=== PATIENT | female | born 1990 | race Caucasian/White ===

== ENCOUNTER 2020-10-11 08:15 | Outpatient (RCR) | payer OTHER, SELFPAY ==
--- NOTE | 2020-08-25 10:44 | PTOPEVAL ---
PHYSICAL THERAPY EVALUATION AND PLAN OF CARE Thank you for referring Fatmata Gomez to [facility].? The patient is scheduled to be seen for therapy? 1x/week for 4 weeks. Please review, sign, date and return this plan of care BRY. I agree with and certify that the following plan of care is medically necessary. Referring Physician Date Attending Provider: Tiffany Jovel, BENCH ASSEMBLER Evaluation Diagnosis lower back pain with left radicular symptoms Onset 1month Subjective Information Here today with c/o lower back Query Text:As Reported By Patient/ pain with left radicular Family symptoms that will go down to the ankle. This has been happening about a month. Sometimes pain is just in lower back. When symptoms go down the left leg, it will prevent bending over or standing up tall and can last 10-20minutes. Describes the pain that goes down the leg as Just hurts. Describes a tingling just in the foot, but not the whole leg. Self Report Pain Assessment Left Spine, Lumbar Reported Pain Level 4 Pain Description Aching Pain Frequency Acute,Continuous Lowest Pain Intensity 2 Greatest Pain Intensity 9 Pain Score Pain Score 4: Self Report Interventions Used Interventions Used By Clinicians Exercise,Joint Mobilization, Manual Therapy Techniques Pain Relief Interventions Used By None Patient Cervical and Lumbar ROM Lumbar ROM Lumbar Flexion (0-90) 60 Query Text:Active in Degrees Lumbar Flexion Active Ankle Query Text:Hands to: Lumbar Extension (0-40) 14 Query Text:Active in Degrees Lateral Rotation Right (0-45) 30 Query Text:Active in Degrees Lateral Rotation Left (0-45) 20 Query Text:Active in Degrees Lumbar Comments after treatment: extension = 22deg, left rotation = 26deg Lower Extremity Muscle Strength Testing Hip Strength Right Hip Flexion Strength 5 Normal Hip Extension Strength 4- Good - Hip Abduction Strength 4+ Good + Hip Strength Comments pain in left lower back with hip flexion, hip abduction, and extension testing Left Hip Flexion Strength 4+ Good + Hip Extension Strength 3- Fair -
--- NOTE | 2020-09-15 09:06 | PTOPEVAL ---
PHYSICAL THERAPY PROGRESS REPORT AND POC UPDATE Thank you for referring Fatmata Gomez to [facility].? The patient is scheduled to be seen for therapy? 1x/every other week for 4 weeks. Please review, sign, date and return this plan of care BRY. I agree with and certify that the following plan of care is medically necessary. Referring Physician Date Attending Provider: Tiffany Jovel, PLUG SORTER Progress Diagnosis lower back pain with left radicular symptoms Onset 1month Subjective Information Reports that she has been Query Text:As Reported By Patient/ gradually improving week by Family week. Over the last week she had no symptoms except for yesterday evening. She did her exercises and she felt better . Pain Assessment Timing of Pain Assessment Timing of Pain Assessment Pre-Treatment Self Report Self Report Pain Level 0 Pain Score Pain Score 0: Self Report Interventions Used Interventions Used By Clinicians Exercise,Joint Mobilization, Manual Therapy Techniques Pain Relief Interventions Used By None Patient Cervical and Lumbar ROM Lumbar ROM Lumbar Flexion (0-90) 60 Query Text:Active in Degrees Lumbar Flexion Active Ankle Query Text:Hands to: Lumbar Extension (0-40) 20 Query Text:Active in Degrees Lateral Rotation Right (0-45) 30 Query Text:Active in Degrees Lateral Rotation Left (0-45) 30 Query Text:Active in Degrees Lumbar Comments . Cervical and Lumbar Muscle Testing Lumbar Strength Upper Abdominal Strength 4-Good- Lower Abdominal Strength 3+Fair+ Lower Extremity Muscle Strength Testing Hip Strength Right Hip Flexion Strength 5 Normal Hip Extension Strength 4 Good Hip Abduction Strength 4+ Good + Hip Strength Comments . Left Hip Flexion Strength 5 Normal Hip Extension Strength 4- Good - Hip Abduction Strength 4+ Good + Muscle Length Testing Muscle Length Testing Piriformis w/Hip Flexion >90 Degrees (R) Mild Tightness,(L) Mild Tightness Left Hamstring Length -40 Query Text:(90 - 90 Position) Right Hamstring Length -40 Query Text:(90 - 90 Position) Posture Posture Supine Position Pelvis Posture Neutral Additional Posture Comments in supine: tends to hold right LE internally rotated Palpation Assessment Palpation Palpation bilateral glutes continue to be sore w
--- NOTE | 2020-09-27 11:05 | PCPTNOTE ---
Patient did not show up for scheduled appointment this date. Called and reminded her of her appointment on 10/11.
--- NOTE | 2020-10-11 08:34 | PTOPEVAL ---
PHYSICAL THERAPY DISCHARGE NOTE Thank you for referring Fatmata Gomez to [facility]. Please review, sign, date and return this plan of care BRY. I agree with and certify that the following plan of care is medically necessary. Referring Physician Date Attending Provider: Tiffany Jovel, INSTRUCTOR BUSINESS EDUCATION Discharge Diagnosis lower back pain with left radicular symptoms Onset 1month Subjective Information Reports having no symptoms. Query Text:As Reported By Patient/ States she has been working on Family her exercises and she is doing really well. She also bought a heating pad which really helps to relieve symptoms. Pain Score Pain Score 0: Self Report Cervical and Lumbar ROM Lumbar ROM Lumbar Flexion (0-90) 70 Query Text:Active in Degrees Lumbar Flexion Active Ankle Query Text:Hands to: Lumbar Extension (0-40) 20 Query Text:Active in Degrees Lateral Rotation Right (0-45) 30 Query Text:Active in Degrees Lateral Rotation Left (0-45) 30 Query Text:Active in Degrees Lower Extremity Muscle Strength Testing Hip Strength Right Hip Flexion Strength 5 Normal Hip Extension Strength 5 Normal Hip Abduction Strength 5 Normal Left Hip Flexion Strength 5 Normal Hip Extension Strength 5 Normal Hip Abduction Strength 5 Normal Knee Strength Bilateral Knee Flexion Strength 5 Normal Knee Extension Strength 5 Normal Muscle Length Testing Muscle Length Testing Piriformis w/Hip Flexion >90 Degrees (R) Mild Tightness,(L) Mild Tightness Left Hamstring Length -30 Query Text:(90 - 90 Position) Right Hamstring Length -30 Query Text:(90 - 90 Position) General Exercise General Exercises Side Bilateral Exercise Location hips, core Exercise Type Active,Resistive Exercise Description -s/l hip abduction SLR [id number] Query Text:Record Sets, Reps, -quadruped birddog [id number] Resistance, and Position -cat-cow in quadruped [id number] PT Clinical Summary Fatmata is presents today with no symptoms to c/o. She demonstrates normal and symmetrical LE strength and presents with improving core stability and control. I recommend discharge from PT at this time. PT Services Indicated
== END 2020-10-11 13:42 | disposition home or self-care (01) ==
LOC: ANHPT 08:15
PROVIDERS: PCP Family Medicine; Visit Provider Nurse Practitioner Family
DX: M54.16 Radiculopathy, lumbar region (principal)
CPT/HCPCS: 97110; 97140; 97161

== ENCOUNTER 2023-12-04 10:27 | Outpatient (CLI) | payer OTHER, SELFPAY ==
[2023-12-04 11:57] LABS: Basophils Percent Auto 0.4 % (0.2-1.2); Eosinophils Absolute Auto 0.1 K/mm3 (0-0.3); Eosinophils Percent Auto 2.2 % (0-4.4); Hematocrit 41.4 % (37.0-47.0); Hemoglobin 12.9 g/dL (12.0-15.0); Immature Granulocyte Absolute 0.01 K/mm3 (0.00-0.031); Immature Granulocyte Percent A 0.2 % (0-0.5); Lymphocytes Absolute Auto 1.35 K/mm3 (0.9-3.2); Lymphocytes Percent Auto 29.4 % (18.3-44.2); Mean Corpuscular HGB Conc 31.2 g/dl (32-36); Mean Corpuscular Hemoglobin 26.7 pg (26-34); Mean Corpuscular Volume 85.5 fl (80-100); Monocytes Absolute Auto 0.4 K/mm3 (0.1-0.6); Monocytes Percent Auto 8.7 % (2.6-8.5); Neutrophils Absolute Auto 2.7 K/mm3 (1.3-6.7); Neutrophils Percent Auto 59.1 % (45.5-73.1); Platelet Count Result 193 k/mm3 (150-375); Red Blood Count 4.84 M/mm3 (4.2-5.4); Red Cell Distribution Width 14.9 % (11.5-14.5); White Blood Count 4.6 K/mm3 (4.5-10.0)
[2023-12-04 12:11] LABS: Alanine Aminotransferase 21 U/L (6-35); Albumin Level 4.5 g/dL (3.5-5.1); Alkaline Phosphatase 43 U/L (38-126); Anion Gap 6 mmol/L (4-12); Aspartate Amino Transferase 21 U/L (14-36); Bilirubin,Total 0.5 mg/dL (0.2-1.3); Blood Urea Nitrogen 13 mg/dL (7-17); Calcium 9.8 mg/dL (8.4-10.2); Carbon Dioxide 26 mmol/L (22-30); Chloride 107 mmol/L (98-107); Cholesterol 170 mg/dL (0-200); Estimated Glomerular Filt Rate > 60; Glucose 108 mg/dL (65-110); HDL Direct 59 mg/dL; Potassium 4.2 mmol/L (3.4-5.0); Sodium 139 mmol/L (137-145); Triglycerides 48 mg/dL (<150)
[2023-12-04 12:22] LABS: LDL Cholesterol Direct 97 mg/dL
[2023-12-04 12:41] LABS: Thyroid Stimulating Hormone 0.773 uIU/mL (0.465-4.680)
== END 2023-12-04 10:28 | disposition home or self-care (01) ==
PROVIDERS: PCP Family Medicine; Visit Provider Nurse Practitioner Family
DX: R23.3 Spontaneous ecchymoses (principal); R61 Generalized hyperhidrosis; R68.89 Other general symptoms and signs; Z13.220 Encounter for screening for lipoid disorders; R53.83 Other fatigue; Z13.1 Encounter for screening for diabetes mellitus; E55.9 Vitamin D deficiency, unspecified
CPT/HCPCS: 36415; 80053; 80061; 82306; 82607; 84439; 84443; 85025

== ENCOUNTER 2025-08-09 16:57 | Outpatient (CLI) | payer OTHER, SELFPAY ==
--- NOTE | ~2025-08-09 | XR_ITS ---
EXAMINATION: XR elbow RT min 3V, 08/09/2025 17:10 PLANTING MATERIAL CARRIER HISTORY: M25.521 - Pain in right elbow x 2months, no known injury COMPARISON: No comparisons available. Findings: No acute fracture or malalignment. No significant degenerative changes. Soft tissues unremarkable. Impression: No acute fracture or malalignment. Reviewed, dictated and finalized at location P. TING MATERIAL CARRIER Impression: No acute fracture or malalignment.
== END 2025-08-09 16:58 | disposition home or self-care (01) ==
LOC: ANHIMG 17:00
PROVIDERS: PCP Family Medicine
DX: M25.521 Pain in right elbow (principal); M25.421 Effusion, right elbow
CPT/HCPCS: 73080